=== PATIENT | female | born 1995 | race Caucasian/White ===

== ENCOUNTER 2019-07-02 12:23 | Inpatient (IN) ==
[2019-07-02] MEDS ORDERED: Ondansetron 4 MG/2 ML VIAL IVP PRN (12:41)
[2019-07-02] MEDS ORDERED: Lidocaine 1% 20 ML MDV INFILT PRN (12:41)
[2019-07-02] MEDS ORDERED: *HR* Nalbuphine 10 MG/ML AMPUL IVP PRN (12:41)
[2019-07-02] MEDS ORDERED: Naloxone 0.4 MG/ML INJ IVP PRN (12:41)
[2019-07-02] MEDS ORDERED: Famotidine 20 MG/2 ML VIAL IVP PRN (12:41)
[2019-07-02] MEDS ORDERED: Metoclopramide 10 MG/2 ML VIAL IVP PRN (12:41)
[2019-07-02] MEDS ORDERED: Penicillin G Potassium 5,000,000 UNIT in 0.9 % Sodium Chloride Mini Bag 100 ML IVPB ONE (12:41)
[2019-07-02] MEDS ORDERED: Ringers Solution, Lactated 1,000 ML IVC SCH (12:45)
[2019-07-02] MEDS ORDERED: Ringers Solution, Lactated 1,000 ML ONE (12:47)
[2019-07-02] MEDS ORDERED: Ringers Solution, Lactated 2,000 ML ONE (12:52)
[2019-07-02 13:24] LABS: Basophils # 0.1 K/mcL (0.0-0.2); Basophils % 0.6 %; Eosinophils # 0.2 K/mcL (0.0-0.6); Eosinophils % 1.4 %; Hematocrit 30.4 % (35.3-44.9); Hemoglobin 10.1 g/dL (11.5-15.4); Immature Granulocytes % 4.3 % (0-4); Lymphocytes # 2.4 K/mcL (0.6-4.6); Lymphocytes % 21.8 %; Mean Corpuscular HGB Conc 33.2 g/dL (31.6-35.5); Mean Corpuscular Hemoglobin 31.8 pg (28.0-33.3); Mean Corpuscular Volume 95.6 fL (83.0-100.0); Mean Platelet Volume 9.8 fL (9.4-12.4); Monocytes # 0.6 K/mcL (0.0-1.3); Monocytes % 5.1 %; Neutrophils # 7.3 K/mcL (1.6-8.9); Platelet Count 233 K/mcL (140-400); Red Blood Count 3.18 M/mcL (3.82-4.97); Red Cell Distribution Width 13.1 % (11.5-14.5); Segmented Neutrophils % 66.8 %; White Blood Count 10.8 K/mcL (4.3-11.1)
[2019-07-02] MEDS ORDERED: Oxytocin 20 units/ LR 1000 mL 20 UNIT/1,000 ML BAG IVC ONE ×2 (13:40→19:46)
[2019-07-02] MEDS ORDERED: Epidural Premix (fent/bupiv) 110 ML EP ONE (15:43)
[2019-07-02] MEDS ORDERED: Epidural Premix (fent/bupiv) 110 ML EP SCH (15:45)
[2019-07-02] MEDS ORDERED: Penicillin G Potassium 2,500,000 UNIT in 0.9 % Sodium Chloride 100 ML IVPB SCH (16:00)
--- NOTE | 2019-07-02 16:56 | Anesthesia Evaluation PreOp ---
Date of Encounter: 07/02/19 Time of Encounter: 15:50 - Past History Planned Operation: SEBASTIAN Cardiac History: Denies any Significant Hx Pulmonary History: Denies Any Significant HX ASSISTANT BOOKKEEPER History: Denies Any Significant HX Other Medical History: Denies Any Significant HX Anesthesia History: No Prior Anesthetic Complications : Yes Test: Positive Alcohol Use: none Drug use: none Medications and Allergies Vitamin Tablet 1 / PO DAILY 07/02/19 [History] Allergy/AdvReac Type Severity Reaction Status Date / Time No Known Allergies Allergy Verified 07/31/16 19:40 - Meds/Allergy Pre-op Review Medications Reviewed: Yes Allergies Reviewed: Yes Beta Blockers on Current Med List: No Anesthesia Results - Labs 07/02/19 13:00 Anesthesia Exam - HEENT Pupil (Motor): Pupils equal Mallampati: I Teeth: Normal Oral Opening: Greater than 3 - ASSISTANT BOOKKEEPER LOC: Oriented ASSISTANT BOOKKEEPER Motor: Normal RUE, Normal LUE, Normal RLE, Normal LLE, Normal Face ASSISTANT BOOKKEEPER Sensory: Normal: RUE, LUE, RLE, LLE, Face - Cardiac Rhythm: Regular Murmur: None JVD: No Carotid Bruit: No - Pulmonary Breath Sounds: bilateral Clear Respiratory Effort: Symmetrical Anesthesia Assess/Plan ASA Score: 1 Level of consciousness: Cooperative Anesthetic Plan: Epidural
--- NOTE | 2019-07-02 17:00 | Anesthesia Procedures ---
Date of Encounter: 07/02/19 Time of Encounter: 15:50 Procedures: Anesthesia - Epidural/Spinal Patient ID/Chart reviewed: Yes Patient examined: Yes OB Eval: Gestational age: 37.6 OB Eval: : 4 OB Eval: Hx Para: 2 OB Eval: Dilated at (cm): 8 OB Eval: Contractions: Non-stressed pattern Consent Obtained: Yes Site Prep: Aseptic Technique, Sterile prep and drape, Povidone-Iodine 1% Patient position: upright Amount of Local Anesthetic used: 3 Touhy Needle Gauge: 18 Touhy Needle Depth (cm): 6 Catheter Depth at Skin (cm): 8 Test Dose (1.5% Lido + Epi): Volume given (mls): 3 Test Dose Result: Negative Loading Dose Administered: Thru Catheter Infusion Rate (mls/hr): [address]: Tegaderm, Tape Interspace Used: L4-L5 Loss of Resistance (ELLIE): Yes Blood: No CSF: No Paresthesia: No Procedure: tolerated procedure well. FHTS VSS see nursing notes. patient reports relief.
--- NOTE | 2019-07-02 18:02 | OB/GYN History & Physical ---
Date of Encounter: 07/02/19 Time of Encounter: 12:00 Assessment and Plan (1) 37 weeks gestation of Current visit: Yes Status: Acute (2) labor in third trimester Current visit: Yes Status: Acute Qualifiers: labor delivery status: with delivery in third trimester Fetus number: single or unspecified fetus Qualified Code(s): O60.14X0 - labor third trimester with delivery third trimester, not applicable or unspecified History of Present Illness Chief complaint: labor HPI: Ms. River is a 23 year old female 012 who presented to labor and delivery after being seen in the office. This patient was 8 cm in the office. She is group B strep positive. She was sent immediately to labor and delivery for IV antibiotics and expectant management until she did not labor. She is doing well. She is having no complaints. She continues to feel lower back pain and pressure. She has no drug allergies. She is currently on vitamins. She has no chronic medical conditions. Surgical history is negative. She has no history of abnormal Pap smears, STDs or pelvic infections. Socially she denies tobacco or illicit drug use. She does drink occasionally. Family history significant for cervical cancer diabetes hypertension and mental illness. Obstetric history is significant for 2 term vaginal deliveries uncomplicated and 1 early miscarriage. Past Med Surg Social Fam HX - Past Medical History Medical history: no medical history Psychiatric history: anxiety - Past Surgical History Surgical History: other Additional surgical history: left shoulder surgery - Social History Smoking Status: Former smoker Smokeless Tobacco Status: No Alcohol use: none Drug use: none - Family History Mother Living Status: Still Living Hx Family Cardiac Disorders: No Hx Family Respiratory Disorders: No Hx Family Cancer: Yes (uterine) Hx Family GI Disorders: No Hx Family Genitourinary Disorders: No Hx Family Endocrine Disorder: No Hx Family Musculoskeletal Disorders: No Hx Family Neuromuscular Disorders: No Hx Family Neurologic Disorders: No Hx Family HEENT Disorders: No Hx Family Autoimmune Disorders: No Hx Family Reproductive Disorders: No Hx Family Psychosocial Disorders: No Hx Family Medical Disorders: No Obstetrical History - Pregnancies : 4 Para: 2 Term: 2 Ab's: 1 Livin Medications and Allergies Vitamin Tablet 1 / PO DAILY 07/02/19 [History] Allergy/AdvReac Type Severity Reaction Status Date / Time No Known Allergies Allergy Verified 07/31/16 19:40 Review of System OB All systems PM: reviewed and no additional remarkable complaints except as stated Exam - Constitutional Constitutional: well developed, no acute distress, average body habitus - HEENT HEENT: EOMI, PERRL, Normocephaly - Neck Neck exam: full ROM, normal inspection - Lungs Respiratory exam: CTAB - Cardiovascular Cardiovascular exam: RRR - Abdomen Abdomen: Present: bowel sounds normal, gravid, non tender - Extremities Extremities exam: full ROM - Vagina Vagina: Present: normal moisture - Cervix Dilation: 8 Effacement: 80 Station: -1 - Uterus Uterus exam: Present: normal size Results Result Diagrams: 07/02/19 13:00 Abnormal lab results RBC 3.18 M/mcL (3.82-4.97) L 07/02/19 13:00 Hgb 10.1 g/dL (11.5-15.4) L 07/02/19 13:00 Hct 30.4 % (35.3-44.9) L 07/02/19 13:00 Immature Gran % 4.3 % (0-4) H 07/02/19 13:00 All other labs normal. - VTE Reasons for not Prescribing Prophylaxis: Treatment not Indicated - Low risk for VTE
--- NOTE | 2019-07-02 18:34 | OB/GYN Procedure Note ---
Delivery - Delivery Date: 07/02/19 Provider: Glen Seymour Intrapartum events: none Delivery induction: none Delivery augmentation: rupture of membranes Delivery monitor: external FHT, external uterine Anesthesia: epidural Quantitated Blood Loss: 300 - (s) Infant A Delivery Date: 07/02/19 Infant Delivery Time: 18:25 Presentation: vertex Position: OA Route of delivery: Gender: Male Viability: Viable at 1 minute: 7 at 5 mins: 9 Shoulder Dystocia: not encountered Cord: 3 umbilical vessels - Repair Episiotomy: none Laceration Description: None - Complications Delivery complications: none Delivery comments: This patient progressed rapidly to complete and pushing after artificial rupture membranes was performed. Infant's head was on the perineum with 2 pushes. The rest the infant was then delivered with 1 push. Infant cried immediately upon delivery. The cord was cut to cut. The was in past nurse in attendance. Cord bloods obtained. Placenta was then delivered spontaneously and intact. There were no cervical, vaginal, periurethral or perineal lacerations noted. Patient delivered a male weight is pending has mother skin to skin, Apgars are 7 at 1 minute and 9 at 5 minutes. Estimated blood loss is 300 mL. - Disposition Mom disposition: stable in LDR disposition: stable in LDR
[2019-07-02] MEDS ORDERED: Ibuprofen 600 MG TABLET PO ONE (20:20)
[2019-07-02] MEDS ORDERED: Measles/Mumps/Rubella Vacc 0.5 ML VIAL SQ PRN (21:31)
[2019-07-02] MEDS ORDERED: Oxytocin 20 units/ LR 1000 mL 20 UNIT/1,000 ML BAG IVC SCH (21:31)
[2019-07-02] MEDS: Acetaminophen 325 MG TABLET PO PRN (22:07)
[2019-07-03 07:06] LABS: Basophils % 0.3 %; Eosinophils # 0.2 K/mcL (0.0-0.6); Eosinophils % 1.4 %; Hematocrit 27.4 % (35.3-44.9); Immature Granulocytes % 2.7 % (0-4); Lymphocytes # 2.7 K/mcL (0.6-4.6); Lymphocytes % 23.3 %; Mean Corpuscular HGB Conc 32.8 g/dL (31.6-35.5); Mean Corpuscular Hemoglobin 31.5 pg (28.0-33.3); Mean Corpuscular Volume 95.8 fL (83.0-100.0); Monocytes # 0.8 K/mcL (0.0-1.3); Neutrophils # 7.6 K/mcL (1.6-8.9); Platelet Count 207 K/mcL (140-400); Red Blood Count 2.86 M/mcL (3.82-4.97); Red Cell Distribution Width 12.9 % (11.5-14.5); Segmented Neutrophils % 65.3 %; White Blood Count 11.6 K/mcL (4.3-11.1)
[2019-07-03] MEDS: Acetaminophen 325 MG TABLET PO PRN (08:04)
[2019-07-03 08:31] VITALS: BP 102/60
[2019-07-03] MEDS ORDERED: Prenatal Vit/FA 1 EACH TABLET PO SCH (09:00)
--- NOTE | 2019-07-03 09:48 | Discharge Summary ---
Date of Encounter: 07/03/19 Time of Encounter: 09:46 - Discharge Diagnosis (1) Vaginal delivery Priority: Primary Status: Acute Comments: Patient meeting day one milestones. Pain well-controlled with prescribed medications. States she can take OTC meds for discomfort. Voiding without difficulty, tolerating regular diet, bleeding light. Positive bowel movement. Anticipate discharge tonight (2) Sore throat Priority: Secondary Status: Acute Comments: Requesting medication for sore throat. Feels it is allergy related, states she has had a cough for several days. (3) Breast feeding status of mother Priority: Secondary Status: Acute Comments: support as needed. States she has a breast pump at home. - Discharge Medications Prescriptions: New Acetaminophen [Tylenol] 650 mg PO Q6HR PRN tablet PRN Reason: Mild Pain Continued Vitamin Tablet 1 / PO DAILY Home Medications: Vitamin Tablet 1 / PO DAILY 07/02/19 [History] Acetaminophen [Tylenol] 650 mg PO Q6HR PRN tablet 07/03/19 [Rx] Allergies/Adverse Reactions: Allergy/AdvReac Type Severity Reaction Status Date / Time No Known Allergies Allergy Verified 07/31/16 19:40 Data Procedures and tests throughout hospitalization: Laboratory Tests 07/02/19 07/03/19 13:00 06:13 WBC 10.8 11.6 H RBC 3.18 L 2.86 L Hgb 10.1 L 9.0 L Hct 30.4 L 27.4 L MCV 95.6 95.8 MCH 31.8 31.5 MCHC 33.2 32.8 RDW 13.1 12.9 Plt Count 233 207 MPV 9.8 10.0 Immature Gran % 4.3 H 2.7 Seg Neutrophils % 66.8 65.3 Lymphocytes % 21.8 23.3 Monocytes % 5.1 7.0 Eosinophils % 1.4 1.4 Basophils % 0.6 0.3 Neutrophils # 7.3 7.6 Lymphocytes # 2.4 2.7 Monocytes # 0.6 0.8 Eosinophils # 0.2 0.2 Basophils # 0.1 0.0 Labs on day of discharge: Labs from last 24 hours 07/03/19 07/02/19 06:13 13:00 WBC 11.6 H 10.8 RBC 2.86 L 3.18 L Hgb 9.0 L 10.1 L Hct 27.4 L 30.4 L MCV 95.8 95.6 MCH 31.5 31.8 MCHC 32.8 33.2 RDW 12.9 13.1 Plt Count 207 233 MPV 10.0 9.8 Immature Gran % 2.7 4.3 H Seg Neutrophils % 65.3 66.8 Lymphocytes % 23.3 21.8 Monocytes % 7.0 5.1 Eosinophils % 1.4 1.4 Basophils % 0.3 0.6 Neutrophils # 7.6 7.3 Lymphocytes # 2.7 2.4 Monocytes # 0.8 0.6 Eosinophils # 0.2 0.2 Basophils # 0.0 0.1 Date of admission: 07/02/19 12:23 Primary care physician: Parag Centeno MD Consults: 07/02/19 21:31 Consult to [employer]er [CONS] Routine Comment: Vaginal delivery, consult needed Discharging clinician: Nida Tate Anticipated date of discharge: 07/03/19 - Patient Status Disposition: Home, Self-Care Condition: Good Functional capacity at discharge: independent ambulation Overall status at discharge: patient is progressing back to baseline - Discharge Instructions Follow Up With: Parag Centeno MD [Primary Care Provider] - Glen Seymour MD [Partnered Physician] - - Diet and Activity Activity: resume usual activities as tolerated Diet: regular diet Hospital Course Reason for admission: active labor Delivery: Episiotomy: none Laceration: none Other procedures: none complications: none Discharge diagnosis: IUP at term delivered Sanders baby: female Hospital course: Delivery Date: 07/02/19 Provider: Glen Seymour Intrapartum events: none Delivery induction: none Delivery augmentation: rupture of membranes Delivery monitor: external FHT, external uterine Anesthesia: epidural Quantitated Blood Loss: 300 - Infant (s) A Infant Delivery Date: 07/02/19 Infant Delivery Time: 18:25 Presentation: vertex Position: OA Route of delivery: Gender: Male Viability: Viable at 1 minute: 7 at 5 mins: 9 Shoulder Dystocia: not encountered Cord: 3 umbilical vessels - Repair Episiotomy: none Laceration Description: None - Complications Delivery complications: none Delivery comments: This patient progressed rapidly to complete and pushing after artificial rupture membranes was performed. Infant's head was on the perineum with 2 pushes. The rest the was then delivered with 1 push. cried immediately upon delivery. The cord was cut to cut. The infant was in past nurse in attendance. Cord bloods obtained. Placenta was then delivered spontaneously and intact. There were no cervical, vaginal, periurethral or perineal lacerations noted. Patient delivered a male infant weight is pending has mother skin to skin, Apgars are 7 at 1 minute and 9 at 5 minutes. Estimated blood loss is 300 mL. - Disposition Mom disposition: stable in LDR Sanders disposition: stable in LDR Time Attestation: Total time spent providing and/or coordinating discharge services: Time Spent: Less than 30 minutes Exam - Constitutional Vitals: Temp Pulse Resp BP Pulse Ox 97.8 F 72 16 102/60 99 07/03/19 08:29 07/03/19 08:29 07/03/19 08:29 07/03/19 08:29 07/03/19 08:29 General appearance IM: A&O X 3, pleasant, no acute distress, answers questions appropriately - Respiratory Respiratory exam: Present: CTAB. Absent: respiratory distress Additional comments: Complains of sore throat, slightly red on exam. Patient feels it is allergy related so I will order her Claritin and Robitussin. - Cardiovascular Cardiovascular exam IM: Present: RRR, +S1, +S2, systolic murmur. Absent: irregular rhythm - GI/Abdominal GI/Abdominal exam IM: normal bowel sounds, soft - Rectal Rectal exam: deferred - External exam: normal external exam Uterine Tone: Firm Uterus Position: At Umbilicus, Midline - Extremities Exam Extremities exam IM: Present: full ROM, normal capillary refill, normal inspection. Absent: calf tenderness - Neurological Exam Neurological exam: alert, normal gait, oriented X3
[2019-07-03] MEDS ORDERED: Loratadine/Pseudophed (12 HR) 1 EACH TABLET PO PRN (09:58)
[2019-07-03] MEDS ORDERED: Menthol 9.1 MG LOZENGE PO PRN (09:58)
== END 2019-07-03 16:43 | disposition home or self-care (01) | DRG 560 ==
LOC: 1NENULAB 12:23 → 1NENUOBS 07-03 05:29
PROVIDERS: ADMIT Advanced Practice Midwife; ATTEND Advanced Practice Midwife

== ENCOUNTER 2020-12-31 13:31 | Observation (INO) ==
[2020-12-31] MEDS ORDERED: Ondansetron 4 MG/2 ML VIAL IVP STA (14:17)
[2020-12-31] MEDS ORDERED: Ondansetron ODT 4 MG TAB.RAPDIS SL ONE (14:42)
[2020-12-31 14:44] LABS: Hematocrit 35.3 % (35.3-44.9); Hemoglobin 11.9 g/dL (11.5-15.4); Mean Corpuscular HGB Conc 33.7 g/dL (31.6-35.5); Mean Corpuscular Hemoglobin 31.7 pg (28.0-33.3); Mean Corpuscular Volume 94.1 fL (83.0-100.0); Mean Platelet Volume 9.2 fL (9.4-12.4); Platelet Count 250 K/mcL (140-400); Red Blood Count 3.75 M/mcL (3.82-4.97); White Blood Count 7.9 K/mcL (4.3-11.1)
[2020-12-31 14:46] LABS: Bilirubin,Urine Negative (Negative); Blood,Urine Moderate (Negative); Clarity,Urine Clear (Clear); Color,Urine Light-Yellow (Yellow); Glucose,Urine (UA) Normal (Normal); Ketones,Urine Negative (Negative); Leukocyte Esterase,Urine Moderate (Negative); Mucus,Urine Few per lpf (None-Few); Nitrite,Urine Negative (Negative); Protein,Urine Negative (Neg-Trace); RBC,Urine 15-30 per hpf (0-3); Specific Gravity,Urine 1.016 (1.010-1.025); Squamous Epithelial Cell,Urine Few per hpf (None-Few); Urobilinogen,Urine Normal (Normal)
[2020-12-31] MEDS ORDERED: *HR* FentaNYL (PF) 100 MCG/2 ML VIAL IVP ONE (17:51)
[2020-12-31] MEDS ORDERED: Ondansetron 4 MG/2 ML VIAL ONE (19:35)
[2020-12-31] MEDS ORDERED: Ketorolac 30 MG/ML VIAL ONE (19:35)
[2020-12-31] MEDS ORDERED: Dexamethasone 4 MG/ML VIAL ONE (19:35)
[2020-12-31] MEDS ORDERED: *HR* Rocuronium Bromide 50 MG/5 ML VIAL ONE (19:35)
[2020-12-31] MEDS ORDERED: *HR* FentaNYL (PF) 100 MCG/2 ML VIAL ONE ×2 (19:35→20:20)
[2020-12-31] MEDS ORDERED: *HR* Midazolam HCl 2 MG/2 ML VIAL ONE (19:35)
[2020-12-31] MEDS ORDERED: Lidocaine HCL 4 ML Topical Solution (Laryng-O-Jet Kit Sterile Pak) TP ONE (19:35)
[2020-12-31] MEDS ORDERED: Lidocaine -MPF 2% 2 ML VIAL ONE (19:35)
[2020-12-31] MEDS ORDERED: *HR* Propofol 200 MG/20 ML VIAL IVP ONE (19:36)
[2020-12-31] MEDS ORDERED: Scopolamine Patch 1.5 MG PATCH.TD72 TD PRN (19:50)
[2020-12-31] MEDS ORDERED: *HR* Labetalol 20 MG/4 ML SYRINGE IVP PRN (19:50)
[2020-12-31] MEDS ORDERED: *HR* HYDROmorphone 2 MG TABLET PO PRN (19:50)
[2020-12-31] MEDS ORDERED: *HR* OxyCODONE Immed Rel 5 MG TABLET PO PRN (19:50)
[2020-12-31] MEDS ORDERED: Ringers Solution, Lactated 1,000 ML ONE (21:06)
[2020-12-31] MEDS: *HR* HYDROmorphone (PF) 1 MG/ML SYRINGE IVP PRN ×2 (21:08→21:18)
[2020-12-31] MEDS ORDERED: Ondansetron ODT 4 MG TAB.RAPDIS SL STA (23:25)
[2021-01-01 00:14] VITALS: BP 106/72
== END 2021-01-01 00:45 | disposition home or self-care (01) ==
LOC: EMEROOARM 13:31 → 1NENUOBS 13:31
PROVIDERS: ADMIT Obstetrics & Gynecology; ATTEND Obstetrics & Gynecology

== ENCOUNTER 2022-05-26 03:03 | Inpatient (IN) ==
[2022-05-26 02:49] LABS: Basophils # 0.1 K/mcL (0.0-0.2); Basophils % 0.4 %; Eosinophils # 0.1 K/mcL (0.0-0.6); Eosinophils % 0.9 %; Hematocrit 32.5 % (35.3-44.9); Hemoglobin 10.9 g/dL (11.5-15.4); Immature Granulocytes % 2.7 % (0-4); Lymphocytes # 2.6 K/mcL (0.6-4.6); Lymphocytes % 20.4 %; Mean Corpuscular HGB Conc 33.5 g/dL (31.6-35.5); Mean Corpuscular Hemoglobin 31.6 pg (28.0-33.3); Mean Corpuscular Volume 94.2 fL (83.0-100.0); Mean Platelet Volume 10.2 fL (9.4-12.4); Monocytes # 0.6 K/mcL (0.0-1.3); Neutrophils # 8.8 K/mcL (1.6-8.9); Platelet Count 240 K/mcL (140-400); Red Blood Count 3.45 M/mcL (3.82-4.97); Red Cell Distribution Width 13.1 % (11.5-14.5); Segmented Neutrophils % 70.6 %; White Blood Count 12.5 K/mcL (4.3-11.1)
[~2022-05-26 03:03] MED LIST: *HR* Nalbuphine 10 MG/ML AMPUL IV PRN; EPHEDrine 50 MG/ML VIAL IVP PRN; Famotidine 20 MG/2 ML VIAL IVP PRN; Metoclopramide 10 MG/2 ML VIAL IVP PRN; Naloxone 0.4 MG/ML INJ IVP PRN; Ondansetron 4 MG/2 ML VIAL IVP PRN; Penicillin G Potassium 2,500,000 UNIT/105 ML MLS IVPB SCH; Penicillin G Potassium 5,000,000 UNIT in 0.9 % Sodium Chloride Mini Bag 100 ML IVPB ONE; Ringers Solution, Lactated 1,000 ML IVC ONE
[2022-05-26] MEDS ORDERED: Ringers Solution, Lactated 1,000 ML ONE (03:10)
[2022-05-26] MEDS ORDERED: Epidural Premix (fent/bupiv) 110 ML EP SCH (03:15)
[2022-05-26] MEDS ORDERED: Ibuprofen 600 MG TABLET PO ONE (05:38)
[2022-05-26] MEDS ORDERED: Oxytocin 30 UNIT/503 ML BAG IVC SCH (07:17)
[2022-05-26] MEDS ORDERED: Measles/Mumps/Rubella Vacc 0.5 ML VIAL SQ PRN (07:17)
[2022-05-26] MEDS ORDERED: Benzocaine/Menthol 56 GM AEROSOL SPRAY TP PRN (07:17)
[2022-05-26] MEDS ORDERED: Lanolin 7 G OINT...G. TP PRN (07:17)
[2022-05-26] MEDS ORDERED: Ondansetron ODT 4 MG TAB.RAPDIS SL PRN (07:17)
[2022-05-26] MEDS ORDERED: *HR* OxyCODONE Immed Rel 5 MG TABLET PO PRN (07:17)
[2022-05-26] MEDS: Ibuprofen 600 MG TABLET PO SCH ×3 (07:42→19:40)
[2022-05-26] MEDS: Prenatal Vit/FA 1 EACH TABLET PO SCH (08:03)
[2022-05-26] MEDS: Acetaminophen 325 MG TABLET PO SCH ×3 (08:03→19:39)
[2022-05-27] MEDS: Ibuprofen 600 MG TABLET PO SCH (02:50)
[2022-05-27] MEDS: Acetaminophen 325 MG TABLET PO SCH ×3 (02:50→08:43)
[2022-05-27 08:29] VITALS: BP 103/68; PULSE 69; TEMP 97.7; O2SAT 99
[2022-05-27] MEDS: Prenatal Vit/FA 1 EACH TABLET PO SCH (08:42)
== END 2022-05-27 12:15 | disposition home or self-care (01) | DRG 560 ==
LOC: 1NENULAB → 1NENUOBS 07:09
PROVIDERS: ADMIT Advanced Practice Midwife; ATTEND Advanced Practice Midwife